=== PATIENT | male | born 1995 | race Hispanic/Latino ===

== ENCOUNTER 2021-01-04 04:11 | Emergency (ER) | payer OTHER, SELFPAY | END 2021-01-04 05:55 | LOC: CSHERS 04:11 | DX: Z02.89 Encounter for other administrative examinations (principal) | CPT/HCPCS: 99283 ==

== ENCOUNTER 2021-08-11 09:13 | Emergency (ER) | payer BC, OTHER | END 2021-08-11 13:25 | disposition home or self-care (01) | LOC: CSHERS 09:13 | DX: G56.32 Lesion of radial nerve, left upper limb (principal) ==